=== PATIENT | female | born 1955 | race Caucasian/White ===

== ENCOUNTER 2022-02-26 13:12 | Emergency (ER) | payer MEDICARE, OTHER ==
[~2022-02-26] VITALS: Ht 175.3 cm; Wt 98.9 kg
[2022-02-26 13:44] VITALS: BP 122/66
[2022-02-26] MEDS ORDERED: predniSONE 20 MG TAB PO ONE (14:00)
[2022-02-26] MEDS ORDERED: ALBUTEROL 0.083% 2.5 MG/3 ML NEBU INH ONE (14:00)
[2022-02-26 14:20] LABS: BASOPHILS # (AUTO) 0.1 K/uL (0.00-0.22); BASOPHILS % (AUTO) 0.8 % (0.0-2.0); EOSINOPHILS # (AUTO) 0.4 K/uL (0-0.4); EOSINOPHILS % (AUTO) 3.9 % (0.0-4.0); HEMATOCRIT 33.9 % (36-48); HEMOGLOBIN 11.3 g/dL (12.0-16.0); LYMPHOCYTES # (AUTO) 1.4 K/uL (2.5-16.5); LYMPHOCYTES % (AUTO) 14.7 % (20.5-51.1); MEAN CORPUSCULAR HEMOGLOBIN 33 pg (27-31); MEAN CORPUSCULAR HGB CONC 33 g/dL (33-37); MEAN CORPUSCULAR VOLUME 98.4 fL (80-94); MONOCYTES # (AUTO) 0.6 K/uL (0.8-1.0); MONOCYTES % (AUTO) 6.3 % (1.7-9.3); NEUTROPHILS # (AUTO) 7.2 K/uL (1.8-7.7); NEUTROPHILS % (AUTO) 74.3 % (42.2-75.2); PLATELET COUNT (AUTO) 251 K/uL (140-450); RED BLOOD CELL COUNT(AUTO) 3.45 MIL/uL (4.20-5.40); WHITE BLOOD COUNT (AUTO) 9.7 K/uL (4.8-10.8)
[2022-02-26 15:18] LABS: ALBUMIN 2.7 g/dL (3.4-5.0); ANION GAP 14.4 (8-16); ASPARTATE AMINOTRANSFERASE 21 U/L (15-37); CARBON DIOXIDE 23.9 mmol/L (21-32); CHLORIDE 106 mmol/L (98-107); CREATININE 0.5 mg/dL (0.6-1.3); GFR ARICAN-AMERICAN 159 mL/min (>90); GLUCOSE 101 mg/dL (74-106); POTASSIUM 4.3 mmol/L (3.5-5.1); SODIUM SERUM 140 mmol/L (136-145); TOTAL BILIRUBIN 0.3 mg/dL (0.0-1.0); UREA NITROGEN, BLOOD 23 mg/dL (7-18)
[2022-02-26] MEDS ORDERED: FUROSEMIDE 100 MG/10 ML VIAL IVP ONE (15:45)
[2022-02-26 16:54] VITALS: BP 122/85
[2022-02-26] MEDS ORDERED: HYDROcodone/APAP 5/325 MG 1 TAB TAB PO ONE (17:00)
[2022-02-27] MEDS ORDERED: FAMO20TA13 PO (18:38)
[2022-02-27] MEDS ORDERED: UMEC62.5 INH (18:38)
[2022-02-27] MEDS ORDERED: MELO-176 PO (18:38)
[2022-02-27] MEDS ORDERED: FLUO-402 PO (18:38)
[2022-02-27] MEDS ORDERED: HYDR-4924 PO (18:38)
== END 2022-02-26 19:05 | disposition left against medical advice (07) ==
LOC: MED 13:12
DX: J84.10 Pulmonary fibrosis, unspecified (principal); Z20.822 Contact with and (suspected) exposure to COVID-19; I50.9 Heart failure, unspecified; J44.9 Chronic obstructive pulmonary disease, unspecified; M19.90 Unspecified osteoarthritis, unspecified site; Z88.2 Allergy status to sulfonamides; Z85.43 Personal history of malignant neoplasm of ovary; Z98.890 Other specified postprocedural states
CPT/HCPCS: 36415; 71045; 71275; 80053; 83735; 83880; 84484; 85025; 85379; 87426; 93005; 93970; 94640; 94760; 96374; 99285; J1940; J7512; J7613; Q0092; Q9967

== ENCOUNTER 2022-02-27 15:22 | Emergency (ER) | payer OTHER, MEDICAID ==
[~2022-02-27] VITALS: Ht 175.3 cm; Wt 96.6 kg
[2022-02-27 15:23] VITALS: BP 134/64
--- NOTE | 2022-02-27 15:33 | NUR ---
PT AMBULATED TO ER BED 6
[2022-02-27 16:05] LABS: BASOPHILS % (AUTO) 0.6 % (0.0-2.0); EOSINOPHILS # (AUTO) 0.3 K/uL (0-0.4); EOSINOPHILS % (AUTO) 3.8 % (0.0-4.0); HEMATOCRIT 35.6 % (36-48); HEMOGLOBIN 11.8 g/dL (12.0-16.0); LYMPHOCYTES # (AUTO) 1.2 K/uL (2.5-16.5); LYMPHOCYTES % (AUTO) 14.8 % (20.5-51.1); MEAN CORPUSCULAR HEMOGLOBIN 33 pg (27-31); MEAN CORPUSCULAR HGB CONC 33 g/dL (33-37); MEAN CORPUSCULAR VOLUME 98.4 fL (80-94); MONOCYTES # (AUTO) 0.5 K/uL (0.8-1.0); MONOCYTES % (AUTO) 6.8 % (1.7-9.3); NEUTROPHILS # (AUTO) 5.9 K/uL (1.8-7.7); PLATELET COUNT (AUTO) 252 K/uL (140-450); RED BLOOD CELL COUNT(AUTO) 3.61 MIL/uL (4.20-5.40); RED CELL DISTRIBUTION WIDTH 13.9 % (11.6-13.7); WHITE BLOOD COUNT (AUTO) 7.9 K/uL (4.8-10.8)
--- NOTE | 2022-02-27 16:11 | NUR ---
Barbara durham in ED - 02/27/22 at 1705 by PHSEP PT PRESENTS W/ OTTONIEL +2 PITTING EDEMA BELOW KNEES.
--- NOTE | 2022-02-27 16:11 | NUR ---
66YO FEMALE PT C/O EDEMA AND COUGH X3DAYS. PT HAS MOIST COUGH AND NOTES OCCASIONAL BLOOD. PRESENTS W/ OTTONIEL +2 PITTING EDEMA BELOW KNEES. STATES LEG AND FEET PAIN WHEN BEARING WEIGHT FOR LONG PERIODS OF TIME. DENIES PAIN AT THIS TIME AND STATES TAKING NORCO PRIOR TO ARRIVAL. DENIES N/V/D , FEVER OR CHILLS. PT WAS SEEN IN ER YESTERDAY AND SCHEDULED FOR TX BUT LEFT . PT AAOX4, AMBULATORY W/ STEADY GAIT. NO VISIBLE DISTRESS, RESPIRATIONS EVEN AND UNLABORED. HOB POSITIONED PER COMFORT, BED AT LOWEST POSITION, BED RAILS UP X1. HX: COPD, VAGINAL CANCER, OSTEOARTHRITIS ALLERGIES: SULFA, TRIMETHOPRIM
[2022-02-27 16:27] LABS: ALBUMIN 2.7 g/dL (3.4-5.0); CARBON DIOXIDE 27.7 mmol/L (21-32); CREATININE 0.6 mg/dL (0.6-1.3); POTASSIUM 3.7 mmol/L (3.5-5.1); TOTAL BILIRUBIN 0.2 mg/dL (0.0-1.0)
[2022-02-27] MEDS ORDERED: UMEC62.5 INH (18:38)
[2022-02-27] MEDS ORDERED: MELO-176 PO (18:38)
[2022-02-27] MEDS ORDERED: HYDR-4924 PO (18:38)
[2022-02-27] MEDS ORDERED: FAMO20TA13 PO (18:38)
[2022-02-27] MEDS ORDERED: FLUO-402 PO (18:38)
--- NOTE | 2022-02-27 18:47 | NUR ---
PT SWABBED FOR COVID(WON). SPECIMEN WALKED AND HANDED TO LAB
--- NOTE | 2022-02-27 19:21 | NUR ---
REPORT GIVEN TO VENUS BARAJAS. ALL QUESTIONS ANSWERED. TRANSFER OF CARE AT THIS TIME
[2022-02-27 19:31] VITALS: BP 119/48
--- NOTE | 2022-02-27 19:33 | NUR ---
20G IV CATH PLACED IN L AC
--- NOTE | 2022-02-27 19:44 | NUR ---
PATIENT IS TRANSFER TO [facility]. C/O COUGH X3 DAYS. STATES "COUGHING UP BLOOD" DENIES PAIN CP OR SOB. OTTONIEL EDEMA IN LOWER EXTREMITIES. PT IS A&OX4. 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 20G IV PLACED IN L AC. RESP EVEN AND UNLABORED. BED AT LOWEST POSITION SIDE RAILS UP X1.
--- NOTE | 2022-02-27 21:03 | NUR ---
REPORT CALLED OVER TO MARCELO SOLANO AT [facility] [facility]. ETA UNKNOWN.
--- NOTE | 2022-02-27 21:32 | NUR ---
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
--- NOTE | 2022-02-27 21:40 | NUR ---
Patient to be transferred to [facility]. Is being transferred due to 2124. Receiving facility has accepting physician and available space. ER physician has signed transfer form. Patient or responsible constitution party has agreed to transfer and signed form. Patient belongings inventoried and will be sent with patient. Copy of nursing notes, lab reports, EKG, Physicians Orders and X-rays to be sent with patient. Report called to MARCELO SOLANO at receiving facility. [facility] ambulance service has been called for transfer. ETA is 30MINS.
--- NOTE | 2022-02-27 22:35 | NUR ---
The patient's care was reviewed and supervised by Kira Bautista RN.
== END 2022-02-27 21:40 | disposition short-term general hospital (02) ==
LOC: MED 15:22
DX: I50.9 Heart failure, unspecified (principal); Z20.822 Contact with and (suspected) exposure to COVID-19; R04.2 Hemoptysis; M79.89 Other specified soft tissue disorders; J44.9 Chronic obstructive pulmonary disease, unspecified; F17.200 Nicotine dependence, unspecified, uncomplicated; Z88.2 Allergy status to sulfonamides; Z85.43 Personal history of malignant neoplasm of ovary
CPT/HCPCS: 36415; 71045; 80053; 83880; 84484; 85025; 87426; 93005; 99285; Q0092